=== PATIENT | female | born 1955 | race Caucasian/White ===

== ENCOUNTER 2021-06-05 00:21 | Inpatient (IN) | payer MEDICARE ==
[~2021-06-05] VITALS: Ht 165.1 cm; Wt 104.3 kg
[2021-06-05 01:29] LABS: HEMOGLOBIN 13.2 gm/dl (12.3-15.3); RED BLOOD COUNT 4.39 M/UL (4.00-5.10); WHITE BLOOD COUNT 6.1 K/UL (4.5-11.0)
[2021-06-05 01:52] LABS: BUN/CREATININE RATIO 22 (0-10)
[2021-06-05] MEDS ORDERED: FISH OIL 1,0001 EACH PO (04:46)
[2021-06-06 07:38] LABS: HEMOGLOBIN 11.3 gm/dl (12.3-15.3); WHITE BLOOD COUNT 5.5 K/UL (4.5-11.0)
[2021-06-06 07:54] LABS: RED BLOOD COUNT 3.91 M/UL (4.00-5.10)
[2021-06-06 08:18] LABS: BUN/CREATININE RATIO 28 (0-10)
[2021-06-07 08:22] LABS: HEMOGLOBIN 11.9 gm/dl (12.3-15.3); RED BLOOD COUNT 3.98 M/UL (4.00-5.10); WHITE BLOOD COUNT 4.4 K/UL (4.5-11.0)
[2021-06-07 08:49] LABS: BUN/CREATININE RATIO 33 (0-10)
[2021-06-08 07:22] LABS: HEMOGLOBIN 12.1 gm/dl (12.3-15.3); RED BLOOD COUNT 4.22 M/UL (4.00-5.10)
[2021-06-08 07:31] LABS: WHITE BLOOD COUNT 6.2 K/UL (4.5-11.0)
[2021-06-08 07:51] LABS: BUN/CREATININE RATIO 40 (0-10)
--- NOTE | 2021-06-08 13:19 | NUR ---
1300: RN CHANGING OUT HIGH POLA NC @ 6LPM TO 4 LPM N/C, PATIENT AMBULATED FROM BED TO BATHROOM AN NOTED DROP IN OXYGEN SATURATION TO 82 - 85%. DR BLEVINS AWARE. PROCEEDED WITH 4 LPM N/C, PATIENT SPO2 IMPROVED TO 96% PER PHYSICIAN REQUEST.
[2021-06-08] MEDS ORDERED: LEVOFLOXACIN750 MG PO (14:31)
[2021-06-08] MEDS ORDERED: COMBIVENT RESPIM4 GM INH (14:31)
[2021-06-08] MEDS ORDERED: DECADRON6 MG PO (14:31)
== END 2021-06-08 15:47 | disposition home or self-care (01) | DRG 177 ==
LOC: ER1 00:21 → MED SURG 4 03:44 → CDU 03:44 → MED SURG 4 04:10
PROVIDERS: Internal Medicine; Physician Assistant; ADMIT Internal Medicine
PROC: 8E0ZXY6 Isolation (ICD-10-PCS; principal; 2021-06-05)
PROC: XW033E5 Introduction of Remdesivir Anti-infective into Peripheral Vein, Percutaneous Approach, New Technology Group 5 (ICD-10-PCS; 2021-06-05)
PROC: 3E0333Z Introduction of Anti-inflammatory into Peripheral Vein, Percutaneous Approach (ICD-10-PCS; 2021-06-05)
PROC: XW0DXM6 Introduction of Baricitinib into Mouth and Pharynx, External Approach, New Technology Group 6 (ICD-10-PCS; 2021-06-06)
PROC: 5A0945A Assistance with Respiratory Ventilation, 24-96 Consecutive Hours, High Flow/Velocity Cannula (ICD-10-PCS; 2021-06-06)
DX: U07.1 COVID-19 (principal); J12.82 Pneumonia due to coronavirus disease 2019; J96.01 Acute respiratory failure with hypoxia; E87.6 Hypokalemia; E66.9 Obesity, unspecified; Z79.899 Other long term (current) drug therapy; Z23 Encounter for immunization; Z68.38 Body mass index [BMI] 38.0-38.9, adult
CPT/HCPCS: 36415; 36600; 71045; 80048; 80053; 81001; 82728; 82803; 83036; 83690; 83735; 83880; 84100; 84132; 85025; 86140; 87077; 87086; 87186; 93005; 94640; 94664; 94760; 96374; 99285; J0248; J0696; J1100; J1650; J2405; J7030; U0002

== ENCOUNTER → 2022-02-16 | Outpatient (CLI) | payer MEDICARE ==
[~2022-02-16] MED LIST: COMBIVENT RESPIM4 GM INH; DECADRON6 MG PO; FISH OIL 1,0001 EACH PO; LEVOFLOXACIN750 MG PO
== END ==
LOC: EXRD 13:00 → MAMO 13:58
DX: Z12.31 Encounter for screening mammogram for malignant neoplasm of breast (principal); Z13.820 Encounter for screening for osteoporosis; M85.852 Other specified disorders of bone density and structure, left thigh
CPT/HCPCS: 77063; 77067; 77080